=== PATIENT | male | born 1975 | race African-American/Black ===

== ENCOUNTER 2019-02-15 01:44 | Emergency (ER) | payer BC ==
[~2019-02-15] VITALS: Ht 188 cm; Wt 72.6 kg
[~2019-02-15 01:44] MED LIST: IBU800 MG PO; NKM
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
[2019-02-15] MEDS ORDERED: Hydrogen Peroxide 473ml Bottle TOPIC ONE ×2 (02:00→02:15)
[2019-02-15] MEDS ORDERED: HYDROcodone/Acetamin 7.5/325 tab ORAL ONE (02:00)
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
[2019-02-15 02:09] VITALS: BP 148/81
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
[2019-02-15] MEDS ORDERED: CEPHALEXIN500 MG ORAL (03:16)
[2019-02-15 03:25] VITALS: BP 148/81
--- NOTE | 2019-02-15 03:25 | NUR ---
ER DISCHARGE NOTE: Patient is cleared to be discharged per ALISIA, pt is aox4, on room air, with stable vital signs. pt was given dc and prescription instructions, pt was able to verbalize understanding, pt id band removed. pt is able to ambulate with steady gait. pt took all belongings. Dermabond applied by ERMD, pt tolerated well.
== END 2019-02-15 03:25 | disposition home or self-care (01) ==
LOC: EMR 02:17
DX: S06.9X9A Unspecified intracranial injury with loss of consciousness of unspecified duration, initial encounter (principal); S01.111A Laceration without foreign body of right eyelid and periocular area, initial encounter; V00.141A Fall from scooter (nonmotorized), initial encounter; Y92.9 Unspecified place or not applicable
CPT/HCPCS: 70450; 99284